=== PATIENT | male | born 1960 | race Caucasian/White ===

== ENCOUNTER 2018-12-18 13:49 | Emergency (ER) | payer BC ==
[~2018-12-18] VITALS: Ht 185.4 cm; Wt 104.3 kg
[~2018-12-18 13:49] MED LIST: LISI10TA5 PO; METFORMIN PO
[2018-12-18] MEDS ORDERED: ASPIRIN 325 MG TABLET ONE (14:13)
[2018-12-18] MEDS ORDERED: ASPIRIN 325 MG TABLET PO ONE (14:15)
[2018-12-18 14:20] LABS: BASOPHILS % (AUTO) 0.4 % (0.0-2.0); EOSINOPHILS # (AUTO) 0.1 K/uL (0.0-0.7); EOSINOPHILS % (AUTO) 1.3 % (0.0-7.0); HEMATOCRIT 42.9 % (36.7-47.1); HEMOGLOBIN 14.6 g/dL (12.5-16.3); LYMPHOCYTES # (AUTO) 2.1 K/uL (20.0-40.0); LYMPHOCYTES % (AUTO) 23.8 % (20.5-51.5); MEAN CORPUSCULAR HEMOGLOBIN 28.1 uug (23.8-33.4); MEAN CORPUSCULAR HGB CONC 34 g/dL (32.5-36.3); MEAN CORPUSCULAR VOLUME 82.5 fL (73.0-96.2); MONOCYTES # (AUTO) 0.6 K/uL (2.0-10.0); MONOCYTES % (AUTO) 6.7 % (0.0-11.0); NEUTROPHILS % (AUTO) 67.8 % (38.5-71.5); PLATELET COUNT (AUTO) 242 K/uL (152-348); WHITE BLOOD COUNT (AUTO) 8.9 K/uL (3.6-10.2)
[2018-12-18 14:27] LABS: POTASSIUM 4.2 mmol/L (3.5-5.1)
[2018-12-18 14:32] LABS: BILIRUBIN,DIRECT 0.1 mg/dL (0.0-0.2); BILIRUBIN,TOTAL 0.5 mg/dL (0.2-1.0); TOTAL PROTEIN, SERUM 6.6 g/dL (6.4-8.2)
--- NOTE | 2018-12-18 14:49 | NUR ---
Patient does not wish to proceed with medical care recommended by Dr. SCHMIDT ). Patient given information related to possible complications, up to and including , which could occur as a result of leaving the hospital at this time. Patient verbalizes understanding of risks involved due to leaving against medical advice. Patient has signed AMA form.
[2018-12-18 14:52] VITALS: BP 133/80
== END 2018-12-18 14:53 | disposition home or self-care (01) ==
LOC: ER 13:49
DX: R07.89 Other chest pain (principal); E11.65 Type 2 diabetes mellitus with hyperglycemia; I10 Essential (primary) hypertension; F17.210 Nicotine dependence, cigarettes, uncomplicated; K21.9 Gastro-esophageal reflux disease without esophagitis; Z90.89 Acquired absence of other organs; Z79.899 Other long term (current) drug therapy
CPT/HCPCS: 36415; 70030-TC; 71045; 85025; 93005; A4663

== ENCOUNTER 2022-03-14 13:35 | Emergency (ER) | payer BC ==
[~2022-03-14] VITALS: Ht 177.8 cm; Wt 95.3 kg
[~2022-03-14 13:35] MED LIST changes: +LISI10TA29 PO; -LISI10TA5 PO
--- NOTE | 2022-03-14 13:35 | NUR ---
at bedside to examine pt. criminal defense attorney at bedside as well.
[2022-03-14] MEDS ORDERED: IV NORMAL SALINE 1000 ML BAG IV ONE (13:45)
[2022-03-14] MEDS ORDERED: METF-440 PO (14:02)
[2022-03-14] MEDS ORDERED: FARXIGA (14:02)
[2022-03-14] MEDS ORDERED: DULA1.5P SQ (14:02)
[2022-03-14 14:10] LABS: HEMATOCRIT 41.1 % (36.7-47.1); MEAN CORPUSCULAR HEMOGLOBIN 27.6 uug (23.8-33.4); MEAN CORPUSCULAR VOLUME 81.7 fL (73.0-96.2); PLATELET COUNT (AUTO) 302 K/uL (152-348)
[2022-03-14 14:17] LABS: BILIRUBIN,DIRECT 0.1 mg/dL (0.0-0.2); BILIRUBIN,TOTAL 0.6 mg/dL (0.2-1.0); CREATININE 1.2 mg/dL (0.6-1.3); TOTAL PROTEIN, SERUM 6.9 g/dL (6.4-8.2)
--- NOTE | 2022-03-14 14:35 | NUR ---
Patient refusing to get IVF stating "why do I need to fluids I can just drink water" informed of pt's refusal of treatment.
[2022-03-14 15:01] LABS: BAND % (MANUAL) 2 % (0-10); LYMPHOCYTES % (MANUAL) 29 % (20-40); MONOCYTES % (MANUAL) 14 % (2-10); NEUTROPHILS % (MANUAL) 55 % (42-75)
--- NOTE | 2022-03-14 16:21 | NUR ---
PT WAS D/C'd TO HOME. D/C INSTRUCTIONS GIVEN TO THE PT BY DR ALONZO.
[2022-03-14 16:23] VITALS: BP 136/88
== END 2022-03-14 16:24 | disposition home or self-care (01) ==
LOC: ER 13:36
DX: R19.7 Diarrhea, unspecified (principal); R10.9 Unspecified abdominal pain; E83.52 Hypercalcemia; I10 Essential (primary) hypertension; E11.9 Type 2 diabetes mellitus without complications; Z79.899 Other long term (current) drug therapy; Z79.84 Long term (current) use of oral hypoglycemic drugs; F17.210 Nicotine dependence, cigarettes, uncomplicated; K21.9 Gastro-esophageal reflux disease without esophagitis
CPT/HCPCS: 36415; 70030-TC; 83690; 85025; 87046; 93005; A4663; J7040

== ENCOUNTER 2022-07-21 16:23 | Emergency (ER) | payer BC ==
[~2022-07-21] VITALS: Ht 177.8 cm; Wt 95.3 kg
[~2022-07-21 16:23] MED LIST changes: +DULA1.5P SQ; +FARXIGA; +METF-440 PO; -METFORMIN PO
--- NOTE | 2022-07-21 16:40 | NUR ---
Dr Duran evaluated the pt.
[2022-07-21] MEDS ORDERED: MESA1.2T PO (16:44)
[2022-07-21] MEDS ORDERED: DAPA5TAB PO (16:44)
[2022-07-21] MEDS ORDERED: TADA5TAB2 PO (16:44)
[2022-07-21] MEDS ORDERED: IV NORMAL SALINE 1000 ML BAG IV ONE (16:45)
[2022-07-21 16:56] LABS: HEMATOCRIT 44.2 % (36.7-47.1); MEAN CORPUSCULAR HEMOGLOBIN 26.6 uug (23.8-33.4); MEAN CORPUSCULAR VOLUME 81.8 fL (73.0-96.2); PLATELET COUNT (AUTO) 297 K/uL (152-348)
[2022-07-21 17:13] LABS: ALANINE AMINOTRANSFERASE 24 U/L (16-63); ALKALINE PHOSPHATASE 92 U/L (50-136); ASPARTATE AMINOTRANSFERASE 15 U/L (15-37); BILIRUBIN,DIRECT 0.1 mg/dL (0.0-0.2); BILIRUBIN,TOTAL 0.4 mg/dL (0.2-1.0); CARBON DIOXIDE 30 mmol/L (21-32); CHLORIDE 102 mmol/L (98-107); CREATININE 1.2 mg/dL (0.6-1.3); GLUCOSE 184 mg/dL (74-106); POTASSIUM 4.1 mmol/L (3.5-5.1); TOTAL PROTEIN, SERUM 7.3 g/dL (6.4-8.2); UREA NITROGEN, BLOOD 15 mg/dL (7-18)
--- NOTE | 2022-07-21 18:03 | NUR ---
Pt accidently pulled out HL from LT Hand. Pressure dressing applied.
[2022-07-21 18:05] VITALS: BP 128/70
--- NOTE | 2022-07-21 18:06 | NUR ---
Patient discharged to home in stable condition. Written and verbal after care instructions given. Patient verbalizes understanding of instructions. Stressed follow up or return to ER for worsening s/s.
== END 2022-07-21 18:06 | disposition home or self-care (01) ==
LOC: ER 16:34
DX: R55 Syncope and collapse (principal); E11.9 Type 2 diabetes mellitus without complications; Z79.84 Long term (current) use of oral hypoglycemic drugs; F17.210 Nicotine dependence, cigarettes, uncomplicated; K21.9 Gastro-esophageal reflux disease without esophagitis; I10 Essential (primary) hypertension
CPT/HCPCS: 99285; 96360; 70450; 71045; 80076; 80048; 85025; 84484; 36415; 93005; J7040; A4663